=== PATIENT | female | born 1935 | race Caucasian/White ===

== ENCOUNTER 2016-04-30 07:23 | Day surgery (SDC) | payer MEDICARE, MEDICAID ==
[~2016-04-30] VITALS: Ht 162.6 cm; Wt 103.0 kg
[2016-04-30] MEDS ORDERED: ASPIRIN81 MG PO (08:49)
[2016-04-30] MEDS ORDERED: COZAAR100 MG PO (08:50)
[2016-04-30] MEDS ORDERED: LEVOXYL137 MCG PO (08:50)
[2016-04-30] MEDS ORDERED: CO Q-10100 MG PO (08:50)
[2016-04-30] MEDS ORDERED: MULTIPLE VITAMI1 TA1 PO (08:51)
[2016-04-30] MEDS ORDERED: CLARITIN 10 MG10 MG PO (08:52)
[2016-04-30] MEDS ORDERED: GLIPIZIDE10 MG PO (08:52)
[2016-04-30] MEDS ORDERED: K-TAB10 MEQ PO (08:53)
[2016-04-30] MEDS ORDERED: FLUTICASONE PRO16 GM NASAL (08:53)
[2016-04-30] MEDS ORDERED: LOPRESSOR25 MG PO (08:54)
[2016-04-30] MEDS ORDERED: LASIX40 MG PO (08:54)
[2016-04-30] MEDS ORDERED: ZOLOFT100 MG PO (08:55)
[2016-04-30] MEDS ORDERED: MYSOLINE 50 MG50 MG PO (08:56)
[2016-04-30] MEDS ORDERED: LISINOPRIL5 MG PO (08:57)
[2016-04-30] MEDS ORDERED: NOVOLOG100 U/M1 SC (08:57)
[2016-04-30] MEDS ORDERED: NOVOLOG MIX 70/10 ML SQ (08:58)
[2016-04-30 08:59] VITALS: BP 170/66; Ht 162.6 cm; Wt 103.0 kg
[2016-04-30 09:07] LABS: BASOPHILS 0.4 % (0.0-2.0); EOSINOPHILS 3.6 % (0-7); HEMATOCRIT 40.3 % (36.0-48.0); IMMATURE GRANULOCYTES 0.1 % (0-5); LYMPHOCYTES 23.8 % (15-50); MCH 28.4 pg (26.0-34.0); MCHC 32.3 g/dL (31.0-37.0); MEAN PLATELET VOLUME 10.6 fL (7.4-10.4); MONOCYTES 9.8 % (2-11); NEUTROPHILS 62.3 % (40-80); PLATELET COUNT 214 10x3/uL (130-400); RBC 4.58 10x6/uL (4.00-5.40); RDW 13.9 % (11.5-14.5); WBC 6.7 10x3/uL (4.8-10.8)
[2016-04-30 09:17] LABS: ANION GAP 11.6 mmol/L (8-16); CALCIUM 9.2 mg/dL (8.5-10.1); CARBON DIOXIDE 28.5 mmol/L (21.0-32.0); CREATININE - SERUM 0.9 mg/dL (0.6-1.3); POTASSIUM - SERUM 4.1 mmol/L (3.5-5.1)
--- NOTE | 2016-05-07 08:50 | OP ---
PATIENT NAME: MARLON GUADARRAMA MEDICAL RECORD: [id number] :31 LOCATION:[facility] ADMISSION DATE: SURGEON: GENIE DAHL DPM DATE OF OPERATION: 04/30/2016 PREOPERATIVE DIAGNOSIS: Arthritis, right second proximal interphalangeal joint. POSTOPERATIVE DIAGNOSIS: Arthritis right second proximal interphalangeal joint. PROCEDURE: PIPJ fusion, right second PIPJ. ANESTHESIA: Local with IV sedation utilizing lidocaine and Marcaine plain, approximately 4 cc around the base of the second digit of the right foot. HEMOSTASIS: Right ankle tourniquet at 250 mmHg. PREOPERATIVE DETAILS: The patient was taken to the OR, placed on the operating table in supine position followed by induction of IV sedation and infiltration of local anesthetic. The right extremity was then prepped and draped in the usual aseptic technique followed by exsanguination and inflation of tourniquet. A 15-blade was used to create 2 semi-elliptical incisions over the dorsal aspect of the PIPJ. The skin wedge was removed exposing the extensor longus tendon, which was transected delivering the PIPJ. A sagittal saw was used to resect both the head of the proximal phalanx and base of the middle phalanx then a drill was used in the proximal phalanx and middle phalanx, at which time the bone graft was placed in the deficit, capital fragment on top of the bone graft compressing the fusion site with excellent rigid fixation. Wound was flushed. The extensor longus tendon was repaired with 4-0 Rapide and the skin was closed with 4-0 Rapide followed by Dermabond, Adaptic, 4 x 4 and Conform were used to dress the wound followed by Coban. Tourniquet was deflated. POSTOPERATIVE DETAILS: The patient tolerated the procedure well and left the OR with vital signs stable and vascular status at preop levels. The patient was transferred to recovery per anesthesia in stable condition. TRANSINT:[id number] Voice Confirmation ID: [id number] DOCUMENT ID: [id number] GENIE DAHL DPM at 0850 CC: [id number] DICTATION DATE: 04/30/16 1024 COUNTER MOLDER: 04/30/16 1552 [facility] 04/30/16 [facility] [address] [place] [address]
== END 2016-04-30 12:20 | disposition home or self-care (01) ==
LOC: D.OPS 07:23 → D.PAN 13:30 → D.OPS 14:15 → D.PAN 14:15
PROVIDERS: Anesthesiology
DX: M13.871 Other specified arthritis, right ankle and foot (principal)